=== PATIENT | male | born 1995 | race Caucasian/White ===

== ENCOUNTER 2022-01-12 17:54 | Emergency (ER) | payer SELFPAY ==
[2022-01-12 18:23] VITALS: BP 115/65; PULSE 74; RESP 18; TEMP 36.7; O2SAT 98; BMI 23.7
[2022-01-12 19:25] VITALS: BP 115/65; PULSE 74; RESP 18; TEMP 36.7; O2SAT 98; BMI 23.7
--- NOTE | 2022-01-12 19:37 | ED_ITS ---
HPI - General Adult General Date Seen: 01/12/22 Chief complaint: Ear/Nose/Throat Problem Stated complaint: Ear Pain Source: patient and family History of Present Illness HPI narrative: 26-year-old male presents with bilateral ear pain for 2 weeks. He has had no cold, Fever, cough, congestion, sore throat. Hurts to open and close his mouth and chew. previous history of ear infections. Related Data Home Medications Medication Instructions Recorded Confirmed No Known Home Medications 01/12/22 01/12/22 Allergies Allergy/AdvReac Type Severity Reaction Status Date / Time No Known Drug Allergies Allergy Verified 01/12/22 18:26 Exam Narrative: Exam Narrative: Head is without trauma. He appears in no distress. Eyes normal. Pinnas and external canals bilaterally normal. Right TM is normal. Left TM is slightly d iffuse light reflex and small amount of cerumen on the tympanic membrane. No erythema. Unable to determine whether there is a small middle ear effusion. Palpation around the ear is notable for exquisite tenderness in front of the ears bilaterally over the TMJ. Pain increases with opening and closing. Even without palpation he reports pain in that area with opening and closing his mouth. Tooth wear suggests some bruxism Const: Vital Signs, click to edit/add: Vital Signs - 24 hr 01/12/22 18:23 01/12/22 19:25 Temperature 98.0 F 98.0 F Pulse Rate [Right Pulse Oximeter] 74 74 Respiratory Rate 18 18 Blood Pressure [Ri ght Upper Arm] 115/65 115/65 Pulse Oximetry 98 98 Documenting provider has reviewed patient's vital signs: yes Course Vital Signs Vital signs: Initial Vital Signs Temperature 98.0 F 01/12/22 18:23 Temperature Source Temporal Artery Scan 01/12/22 18:23 Pulse Rate 74 01/12/22 18:23 Pulse Rhythm 01/12/22 18:23 Respiratory Rate 18 01/12/22 18:23 Blood Pressure 115/65 01/12/22 18:23 Blood Pressure Mean 81 01/12/22 18:23 Blood Pressure Position Sitting 01/12/22 18:23 Pulse Oximetry 98 01/12/22 18:23 Oxygen Delivery Method 01/12/22 18:23 Vital Signs Temperature 98.0 F 01/12/22 18:23 Pulse Rate 74 01/12/22 18:23 Respiratory Rate 18 01/12/22 18:23 Blood Pressure 115/65 01/12/22 18:23 Pulse Oximetry 98 01/12/22 18:23 Temperature 98.0 F 01/12/22 19:25 Pulse Rate 74 01/12/22 19:25 Respiratory Rate 18 01/12/22 19:25 Blood Pressure 115/65 01/12/22 19:25 Pulse Oximetry 98 01/12/22 19:25 Discharge Plan Discharge Clinical Impression: Bilateral temporomandibular joint pain Patient Disposition: Home, Self-Care Condition: Stable Activity Detail: for the next 2 weeks avoid all chewing. Eat only soft foods that can be swallowed without chewing. If pain persists see your dentist. Consider getting a Mouth guard to protect your teeth at night. Take ibuprofen 200 mg, 2-3 tablets every 6 hours for pain Prescriptions: No Action No Known Home Medications 0RF Follow Up/Referrals: Provider,Not a Local [Primary Care Provider] - Stand Alone [facility]: [facility] Inst[facility]
[2022-01-12 20:00] VITALS: BP 115/65; PULSE 78; RESP 16; TEMP 36.7; O2SAT 99
[2022-01-12 21:05] VITALS: BP 117/72; PULSE 72; RESP 16; TEMP 36.7
== END 2022-01-12 20:10 | disposition home or self-care (01) ==
LOC: ED2 19:34 → ED 19:34 → ED2 19:39 → ED 19:40 → ED2 19:43 → ED 20:14
PROVIDERS: Emergency Provider Family Medicine
DX: M26.603 Bilateral temporomandibular joint disorder, unspecified (principal)
CPT/HCPCS: 99282; 99283